=== PATIENT | male | born 1955 | race Caucasian/White ===

== ENCOUNTER 2016-10-09 11:22 | Inpatient (IN) | payer MEDICARE ==
[~2016-10-09] VITALS: Ht 168.9 cm; Wt 88.5 kg
[~2016-10-09 11:22] MED LIST: ACETAMINOPHEN500 M1 PO; AMBIEN10 MG PO; ANBESOL9 GM TOPICAL; CARDIZEM LA120 MG; CARDIZEM LA120 MG PO; CELEXA10 MG PO; COUMADIN3 MG; COUMADIN3 MG PO; COUMADIN6 MG; LISINOPRIL10 MG PO; NORCO 5/325 TAB1 TA1 PO; NORVASC10 MG PO; PHENERGAN25 M1 PO; PLAVIX75 MG PO; RENAGEL800 MG PO; RENVELA800 MG PO; SENSIPAR30 MG PO; VANCOMYCIN 500500 MG
[2016-10-09 12:38] LABS: BASOPHILS 0.1 % (0.0-2.0); EOSINOPHILS 0 % (0-7); HEMATOCRIT 32.1 % (42.0-54.0); HEMOGLOBIN 11.2 g/dL (13.5-17.5); IMMATURE GRANULOCYTES 1.8 % (0-5); LYMPHOCYTES 1.1 % (15-50); MCH 31.9 pg (26.0-34.0); MCHC 34.9 g/dL (31.0-37.0); MCV 91.5 fL (80.0-100.0); MEAN PLATELET VOLUME 9.5 fL (7.4-10.4); MONOCYTES 2.1 % (2-11); NEUTROPHILS 94.9 % (40-80); RBC 3.51 10x6/uL (4.20-6.10); RDW 14.4 % (11.5-14.5); WBC 18.3 10x3/uL (4.8-10.8)
[2016-10-09 12:44] LABS: PLATELET COUNT 131 10x3/uL (130-400)
[2016-10-09 13:10] LABS: ALBUMIN 2.2 g/dL (3.4-5.0); ALKALINE PHOSPHATASE 244 U/L (46-116); ALT (SGPT) 40 U/L (10-68); BILIRUBIN - TOTAL 1.45 mg/dL (0.2-1.3); CALC OSMOLALITY 285 mosm/kg (275-300); CALCIUM 9.7 mg/dL (8.5-10.1); CARBON DIOXIDE 24.9 mmol/L (21.0-32.0); CHLORIDE - SERUM 89 mmol/L (98-107); CREATININE - SERUM 9.9 mg/dL (0.6-1.3); POTASSIUM - SERUM 4.4 mmol/L (3.5-5.1); PROTEIN - SERUM 5.8 g/dL (6.4-8.2); SODIUM 127 mmol/L (136-145); UREA NITROGEN 91 mg/dL (7-18); eGFR NON AFRICAN AMERICAN 6 mL/min (90-120)
[2016-10-09 13:15] LABS: GLUCOSE 154 mg/dL (74-106)
[2016-10-09 13:21] LABS: CHOLESTEROL, TOTAL 195 mg/dL (0-200); CKMB 1.2 U/L (0.0-3.6); CREATINE KINASE 44 UL (21-232); HDL CHOLESTEROL 15 mg/dL (32-96); LDL CHOLESTEROL 108 mg/dL (0-100); LDL-HDL RATIO 7.2 ratio (1.5-3.5); TRIGLYCERIDE 360 mg/dL (30-200)
[2016-10-09 13:23] LABS: TROPONIN-I < 0.017 ng/mL (0.000-0.060)
[2016-10-09 13:54] LABS: INR 2.85 (0.85-1.17); PROTIME 30.2 SECONDS (11.6-15.0)
--- NOTE | 2016-10-09 16:07 | NUR ---
RECEIVED REPORT FROM RAFAL IN ED ON PATIENT. PATIENT TO BE BROUGHT OVER BY TECH.
--- NOTE | 2016-10-09 16:29 | NUR ---
1415 PATIENT ARRIVED TO UNIT. ADMITTED TO ROOM 2137. ARRIVED TO UNIT VIA GERNEY. PATIENT ALERT/ORIENTED. 20 GAUGE TO AC IS SALINE LOCKED. RESERVE LEFT ARM FOR AV FISTULA. PATIENT REQUIRES MAX ASSIST WITH TURNING AND TRANSFERRING. CALL LIGHT PLACED WITHIN REACH. ASSESSMENT COMPLETE AT THIS TIME. NO ACUTE DISTRESS.
[2016-10-09] MEDS ORDERED: NORVASC10 MG PO (16:36)
[2016-10-09] MEDS ORDERED: ACETAMINOPHEN500 M1 PO (16:38)
[2016-10-09] MEDS ORDERED: SENSIPAR90 MG PO (16:39)
[2016-10-09] MEDS ORDERED: HYDROCODON-ACE1 EAC7 PO (16:39)
[2016-10-09] MEDS ORDERED: ZOFRAN4 MG PO (16:45)
[2016-10-09 17:29] VITALS: BP 108/51; BMI 31.1
[2016-10-09 19:00] VITALS: BP 101/76
[2016-10-10] VITALS (8 sets, daily range): BP systolic 82–114; BP diastolic 42–72; Ht 168.9 cm; Wt 88.5 kg
--- NOTE | 2016-10-10 01:04 | NUR ---
NURSE ROUNDS 19:30 - PT LYING IN BED, AWAKE, ALERT, CONFUSED AND DISORIENTED X 3. PT DID NOT ANSWER QUESTIONS APPROPRIATELY. WHEN I ASKED PT IF HE NEEDED ANYTHING, HE RESPONDED THAT HE HAD ONE POTATO TODAY AND DID NOT NEED ANY MORE, THEN STATED THAT HE HAD BEEN TO [facility] 3 TIMES THIS WEEK AND REFUSING TO GO BACK. CONTINUE TO MONITOR CLOSELY. BED LOW, CALL LIGHT IN REACH. I DID EXPLAIN AND DEMONSTRATE TO PT HOW TO USE HIS CALL LIGHT, IN WHICH HE STATED HE UNDERSTOOD. SIDE RAILS X 2, HOB 10 DEGREES.
--- NOTE | 2016-10-10 05:28 | NUR ---
PT REMAINS CONFUSED, DISORIENTED, SPEECH GARBLED AT TIMES, STATES HE DOES NOT WANT TO GO TO [place], AND HAS INITIALLY REFUSED TO HAVE HIS V/S TAKEN @ 0400. PT DID EVENTUALLY AGREE. PT HAS CONSISTENTLY REMOVED HIS TELEMETRY, SO I DID REMOVE IT AND RETURNED BACK TO SUSHILA, CEMENT TESTER ASSISTANT. CONTINUE TO MONITOR CLOSELY. BED LOW, CALL LIGHT IN REACH, SIDE RAILS X 2, HOB 10 DEGREES, BED ALARM ON.
[2016-10-10 07:04] LABS: ANION GAP 22.5 mmol/L (8-16); BILIRUBIN - DIRECT 1.17 mg/dL (0.00-0.30); BILIRUBIN - INDIRECT 0.63 mg/dL (0.00-1.00); BILIRUBIN - TOTAL 1.8 mg/dL (0.2-1.3); CALCIUM 10.3 mg/dL (8.5-10.1); CARBON DIOXIDE 22.3 mmol/L (21.0-32.0); CREATININE - SERUM 10.2 mg/dL (0.6-1.3); PHOSPHOROUS 3.8 mg/dL (2.5-4.9); POTASSIUM - SERUM 4.8 mmol/L (3.5-5.1); PROTEIN - SERUM 6.1 g/dL (6.4-8.2)
[2016-10-10 07:11] LABS: BASOPHILS 0.1 % (0.0-2.0); EOSINOPHILS 0 % (0-7); HEMATOCRIT 30.9 % (42.0-54.0); IMMATURE GRANULOCYTES 2.3 % (0-5); LYMPHOCYTES 1.7 % (15-50); MCH 32.1 pg (26.0-34.0); MCHC 35.6 g/dL (31.0-37.0); MCV 90.1 fL (80.0-100.0); MEAN PLATELET VOLUME 9.7 fL (7.4-10.4); MONOCYTES 2.7 % (2-11); NEUTROPHILS 93.2 % (40-80); PLATELET COUNT 144 10x3/uL (130-400); RBC 3.43 10x6/uL (4.20-6.10); RDW 14.6 % (11.5-14.5)
--- NOTE | 2016-10-10 11:57 | NUR ---
PT RECIEVING DIALYSIS. PT IS VERY DIAPHORETIC AND COOL TO THE TOUCH. PT STATES "IM JUST TIRED AND DONT FEEL WELL" PT CANT PINPOINT EXACTLY WHATS WRONG THOUGH. PT IS CONFUSED AND RAMBLES RANDOM THOUGHTS THAT DO NOT MAKE SENSE HOWEVER THIS WAS HOW PT HAS BEEN SINCE ADMISSION. PTS L.PUPIL IS ABOUT 5MM AND R.EYE ABOUT 3MM. PTS HX IS HARD TO OBTAIN DUE TO LOC BUT HE STATES HE HAS HAD CATARACTS. VSS, FSBS 138. NO OBVIOUS REASONING FOR PT BECOMING DIAPHORETIC. PLACED COLD COMPRESS ON PTS FOREHEAD. REPLACED TELEMETRY AND PT IS RUNNING 80S CONTROLLED A.FIB. WILL NOTIFY IF SYMPTOMS CONTINUE. DIALYSIS NURSE AT BEDSIDE. WILL CTM.
--- NOTE | 2016-10-10 12:57 | NUR ---
CATH CALLED TO PRE-OP PT. PRE-OP COMPLETED. PT WAITING PATIENTLY AND DENIES ANY FURTHER NEEDS.
--- NOTE | 2016-10-10 12:58 | NUR ---
PT STATES HE IS FEELING BETTER. CHECKED HX AND PT HAS HAD L.EYE SX SO PUPIL DIFFERENCE IS HIS BASELINE. PT STILL DIAPHORETIC BUT FEELING MUCH BETTER. PT STILL RECIEVING DIALYSIS. NO FURTHER NEEDS AT THIS TIME. WILL CTM.
--- NOTE | 2016-10-10 13:40 | NUR ---
TX COMPLETE. PT B/P WAS HYPOTENSIVE. DECREASED UF GOAL 3XS. PT EXTREMELY CONFUSED. THOUGHT HE WAS IN [place]. SPEECH GARBELED. 1200ML OFF.
--- NOTE | 2016-10-10 14:00 | NUR ---
PT RESTING QUIETLY IN BED WITH EYES CLOSED. RR NONLABORED WITH NC @2L IN PLACE. PT STILL VERY LETHARGIC MUMBLES RANDOM INCOMPLETE THOUGHTS DURING CONVERATION. PTS FRIEND CALLED STATING HE IS NEVER CONFUSED AND THIS IS VERY CONCERNING FOR HIM, REQUESTED TO HAVE CARDIOLOGY CONSULTED. NO ORDER PER DOCTOR. NOTIFIED OF PTS RANDOM AMS AND LETHARGY ALL DAY AND ASKED ABOUT CONSULT BUT STATED IT WASNT NEEDED AT THIS POINT AND AMS MOST LIKELY DUE TO ACUTE INFECTION. WILL CTM CLOSELY.
--- NOTE | 2016-10-10 16:59 | NUR ---
[facility] - Patient's in-center clinic is [facility] on [address]. Medical records forwarded to the home unit for their records. Will cont to monitor. BMM PRL
--- NOTE | 2016-10-10 17:56 | NUR ---
PT HASNT EATEN ALL DAY. GOT PT TO DRINK 100CC OF WATER. PT STILL VERY LETHARGIC AND CONFUSED, MUMBLING RANDOM STATEMENTS. WHEN ASKED QUESTIONS PT ANSWERS INAPPROPRIATELY OR NOT AT ALL AND FALLS BACK ASLEEP. BP DOWN TO 82/42 WILL NOTIFY ON-CALL RENAL.
--- NOTE | 2016-10-10 18:03 | NUR ---
IN/OUT CATH PERFORMED PER . NO URINE OUTPUT AVAILABLE FOR COLLECTION. LAB CALLED TO CONFIRM A GRAM POSITIVE COCCI BLOOD CX. WILL CPOC AND AWAIT FINAL RESULT.
--- NOTE | 2016-10-10 18:17 | NUR ---
BP UP TO 105/54. WILL CPOC.
--- NOTE | 2016-10-10 18:40 | NUR ---
INITIATED PTS IVPB ROCEPHIN TO BE INFUSED OVER 30MINS. THIS IS LATE R/T PTS IVPB VANC INFUSING. PT RESTING QUIETLY WITH EYES CLOSED. NO FURTHER NEEDS NOTED AT THIS TIME. WILL CPOC.
--- NOTE | 2016-10-10 20:03 | NUR ---
PTS FRIEND, DAVID JOHNSTON, CALLED TO CHECK ON PTS STATUS. MR. JOHNSTON STATED THAT PT IS GENERALLY VERY AWARE, ORIENTED, AND HAS SHOWN NO MENTAL DEFICITS UNTIL NOW. MR. JOHNSTON STATES THAT PT WAS FOUND AT HIS HOME, IN THE FLOOR, UNRESPONSIVE, UNABLE TO AMBULATE, EXTREMELY CONFUSED, AND GENERALLY APPEARING ILL. MR. JOHNSTON IS INSISTING THAT PT RECEIVE A CARDIAC CONSULT WITH DR. FOX, THAT IS PTS PARK SUPERINTENDENT, AND IS CONCERNED THAT THIS INFECTION COULD BE AFFECTING PTS HEART. WILL ADDRESS WITH RENAL. PT IS LYING IN BED, EYES CLOSED, HARD TO ROUSE, CONFUSED, LETHARGIC, PALE, DIAPHORETIC, AND UNABLE TO UNDERSTAND ANY SIMPLE COMMANDS. WILL CONTINUE TO MONITOR CLOSELY AND CALL MD WITH ANY CHANGES.
--- NOTE | 2016-10-10 20:25 | NUR ---
PT DEMONSTRATES DYSPHAGIA WHEN SWALLOWING HIS MEDICATIONS, EVEN WITH SMALL SIPS OF WATER ALONE. PT IS EASILY ROUSABLE AT THIS TIME, DENIES ANY NEEDS. CONTINUE TO MONITOR CLOSELY. BED LOW, CALL LIGHT IN REACH, SIDE RAILS X 2, HOB 35 DEGREES.
[2016-10-11] VITALS (13 sets, daily range): BP systolic 87–116; BP diastolic 47–84
--- NOTE | 2016-10-11 05:07 | NUR ---
PT EASILY ROUSABLE TO VERBAL STIMULI, STILL MILDLY DIAPHORETIC, COOL AND CLAMMY TO TOUCH. CONTINUE TO MONITOR CLOSELY. BED LOW, CALL LIGHT IN REACH, SIDE RAILS X 2, HOB 30 DEGREES, BED ALARM ON.
[2016-10-11 05:50] LABS: BASOPHILS 0.1 % (0.0-2.0); EOSINOPHILS 0 % (0-7); HEMATOCRIT 30.2 % (42.0-54.0); HEMOGLOBIN 10.7 g/dL (13.5-17.5); IMMATURE GRANULOCYTES 1.3 % (0-5); LYMPHOCYTES 2.9 % (15-50); MCHC 35.4 g/dL (31.0-37.0); MCV 90.4 fL (80.0-100.0); MONOCYTES 5.4 % (2-11); NEUTROPHILS 90.3 % (40-80); PLATELET COUNT 132 10x3/uL (130-400); RBC 3.34 10x6/uL (4.20-6.10); RDW 14.9 % (11.5-14.5); WBC 16.7 10x3/uL (4.8-10.8)
[2016-10-11 06:06] LABS: ANION GAP 19.7 mmol/L (8-16); CALCIUM 10.3 mg/dL (8.5-10.1); CARBON DIOXIDE 22.1 mmol/L (21.0-32.0); CREATININE - SERUM 9.1 mg/dL (0.6-1.3); PHOSPHOROUS 4.8 mg/dL (2.5-4.9); POTASSIUM - SERUM 4.8 mmol/L (3.5-5.1)
--- NOTE | 2016-10-11 08:54 | NUR ---
PT HAVING A LOT OF DIFFICULTY SWALLOWING MEDS. PT CHOKED WITH BOTH PILLS. PT STILL VERY LETHARGIC BUT WAS ORIENTED ENOUGH TO KNOW HE WAS IN THE HOSPITAL. NOT ORIENTED TO SITUATION OR TIME THOUGH. SKIN STILL DIAPHORETIC AND CLAMMY. PT HASNT EATEN OR HAD ENERGY TO EAT OR DRINK ALL DAY YESTERDAY AND REFUSED BREAKFAST TODAY. TELEMETRY IN PLACE RECORDING CONTROLLED A.FIB IN THE 90S. PT RESTING AND DENIES ANY NEEDS AT THIS TIME. CL IN REACH. WILL CTM.
--- NOTE | 2016-10-11 10:02 | NUR ---
LAB ASST NOTIFIED ME OF PT FOAMING AT MOUTH. UPON ASSESSMENT PT WAS DROOLING FOAM. PT PREVIOUSLY HAD VERY HARD TIME SWALLOWING HIS MORNING MEDS AND ENDED UP NEEDING TO SPIT THEM OUT. RR NONLABORED WITH NC @2L. O2 SAT 99%. BP 89/50 VIA R.ARM, HR 96 CONTROLLED A.FIB. CONSULTED SPEECH FOR SWALLOW EVAL, WILL MAKE PT NPO FOR ASPIRATION PRECAUTION AND CTM CLOSELY.
--- NOTE | 2016-10-11 12:03 | NUR ---
PT RESTING QUIETLY IN BED WITH EYES CLOSED. MIRIAM FROM INFECTION CONTROL CALLED STATING HE NEEDS TO BE ON ISOLATION SO PRECAUTIONS WERE DONE AND PT IS NOW ON CONTACT ISOLATION FOR STAPH IN THE BLOOD. PT STILL VERY LETHARGIC AND REFUSED TO EAT OR DRINK. BP HYPOTENSIVE BUT OTHER VSS. NO CURRENT NEEDS NOTED AT THIS TIME. CL IN REACH, BED IN LOWEST, SIDE RAILS X2. WILL CTM.
--- NOTE | 2016-10-11 16:49 | NUR ---
PATIENT RECEIVED FROM MED2 VIA BED. PATIENT VERY LETHARGIC. SCABS NOTED FROM HEAD TO TOE. PATIENT ONLY MOANS IF TOUCHED. MOUTH BREATHER. LUNGS CTA, BS + X4, GENERALIZED EDEMA NOTED TO BILATERAL UPPER EXTREMETIES. RADIAL PULSES WEAK BILATERALLY, PEDAL PULSES NORMAL. DRESSING IN PLACE TO LEFT UPPER ARM FROM WHERE DIALYSIS WAS DONE YESTERDAY AND PER REPORT 1200 PULLED OFF. PATIENT IS ANURIC. RESERVE LEFT ARM. TELEMETRY IS SHOWING CONTROLLED A.FIB AT 86-92. NO VISUAL CUES OF DISTRESS NOTED. WILL CONTINUE TO MONITOR.
--- NOTE | 2016-10-11 18:16 | NUR ---
UNSUCCESSFULL AT STARTING SECOND IV. WILL CHECK WITH PHARMACY TO SEE IF ANTIBIOTICS CAN RUN WITH LEVOPHED THROUGH A [address].
--- NOTE | 2016-10-11 18:21 | NUR ---
LEVOPHED COMPATIBLE WITH ROCEPHIN, BUT AMPICILLIN IS NOT STABLE WITH DEXTROSE BASE FLUIDS. WILL WAIT UNTIL THE AMPICILLIN IS DONE TO START THE LEVOPHED. CURRENTLY BP IS 101/71.
--- NOTE | 2016-10-11 18:31 | NUR ---
AMPICILLIN COMPLETED, NO S/S OF REACTION. WILL NOTIFY PHARMACY.
--- NOTE | 2016-10-11 18:39 | NUR ---
SPOKE WITH ROMMEL IN PHARMACY TO LET HER KNOW THE PATIENT DID FINE WITH TEST DOSE OF AMPICILLIN.
--- NOTE | 2016-10-11 18:59 | NUR ---
SPOKE WITH DR VASQUEZ WHO IS GOLD RECLAIMER FOR DR NASH. ORDER RECEIVED FOR CENTRAL LINE TO BE PLACED. DR SKINNER HERE, SPOKE WITH HIM. HE WANTED TO SPEAK WITH DR FERNANDEZ SECONDARY TO HIM PLACING THE HEROGRAPH. CALLED DR SCHERER OFFICE, CALLED HIS AFTER HOURS NUMBER AND HIS CELL PHONE, MESSAGE WAS LEFT. DR SKINNER STATED HE WAS NOT ABLE TO WAIT ALL EVENING.
--- NOTE | 2016-10-11 19:28 | NUR ---
SPOKE WITH DR FERNANDEZ. EXPLAINED WHY DR SKINNER WAS WANTING TO SPEAK WITH HIM. HE STATED HE WOULD GIVE DR SKINNER A CALL AND SPEAK WITH HIM.
--- NOTE | 2016-10-11 19:38 | NUR ---
DR FERNANDEZ CALLED BACK. STATED THAT DR SKINNER WOULD BE IN AROUND 0600 IN THE MORNING TO SEE ABOUT THE PATIENTS LINE. HE STATED THAT IF HIS LINE DID NOT HOLD UNTIL THEN TO TRY UPPER SHOULDER/CHEST OR ABDOMIN FOR ANOTHER POSSIBLE LINE PLACEMENT. IT WAS EXPLAINED THAT WE DID ATTEMPT THE UPPER SOULDER WITHOUT SUCCESS AND HE AGAIN REPEATED TO LOOK ON THE CHEST OR ABDOMIN.
--- NOTE | 2016-10-11 21:20 | NUR ---
2100 PO MEDS UNABLE TO ADM AT THIS TIME. PT UNABLE TO SWALLOW MEDICATION IN APPLE SAUCE. PT UNABLE TO FOLLOW COMMANDS APPROPRIATELY. WILL CONTINUE TO MONITOR. VSS
--- NOTE | 2016-10-11 23:28 | NUR ---
REASSESSMENT COMPELTE PER FLOW SHEET.VSS NO NEW CHANGES AT THIS TIME. REPOSITIONED ON L SIDE. WILL CONTINUE TO MONITOR.
[2016-10-12] VITALS (24 sets, daily range): BP systolic 81–137; BP diastolic 46–77
--- NOTE | 2016-10-12 01:21 | NUR ---
NO NEW FINDINGS AT THIS TIME. VSS. REPOSITIONED ON R SIDE ORAL CARE ADM. WILL CONTINUE TO MONITOR.
--- NOTE | 2016-10-12 03:16 | NUR ---
REASSESSMENT COMPELTEP ER FLOW SHEET. NO NEW FINDINGS AT THIS TIME. VSS. WILL CONTINUE TO MONITOR.
[2016-10-12 06:44] LABS: EOSINOPHILS 0.1 % (0-7); HEMATOCRIT 28.4 % (42.0-54.0); HEMOGLOBIN 10.1 g/dL (13.5-17.5); LYMPHOCYTES 3.2 % (15-50); MCH 31.8 pg (26.0-34.0); MCHC 35.6 g/dL (31.0-37.0); MCV 89.3 fL (80.0-100.0); MEAN PLATELET VOLUME 10.7 fL (7.4-10.4); MONOCYTES 3.6 % (2-11); NEUTROPHILS 80.1 % (40-80); PLATELET COUNT 132 10x3/uL (130-400); RBC 3.18 10x6/uL (4.20-6.10); RDW 15.2 % (11.5-14.5); WBC 18.2 10x3/uL (4.8-10.8)
[2016-10-12 07:26] LABS: CALCIUM 9.5 mg/dL (8.5-10.1); CREATININE - SERUM 10.4 mg/dL (0.6-1.3); PHOSPHOROUS 5.2 mg/dL (2.5-4.9)
[2016-10-12 07:27] LABS: ANION GAP 13.9 mmol/L (8-16); CARBON DIOXIDE 30.2 mmol/L (21.0-32.0); POTASSIUM - SERUM 6.1 mmol/L (3.5-5.1)
--- NOTE | 2016-10-12 07:50 | NUR ---
ATTEMPTING TO GET PHONE CONSENT FOR CENTRAL LINE PLACEMENT. CALL WAS PLACED TO DAVID JOHNSTON, LISTED PERSON TO NOTIFY AT [phone], MESSAGE LEFT. WILL WAIT FOR RETURN CALL.
--- NOTE | 2016-10-12 08:09 | NUR ---
PATIENT IS CONFUSED AND NOT ABLE TO ANSWER QUESTIONS. HE IS DISORIENTED AND DOES NOT KNOW WHERE HE IS. [facility] CM, CARY GUAMAN, HAS DOCUMENTED THAT PATIENT'S HOME DIALYSIS UNIT IS [facility] IN [place] ON , [address]. CM TO FOLLOW.
--- NOTE | 2016-10-12 08:49 | NUR ---
ASSISTED DR SKINNER IN PLACEMENT OF CENTRAL LINE TO RIGHT GROIN. PATIENT TOLERATED WELL. SITE IS READY FOR USE PER DR SKINNER.
--- NOTE | 2016-10-12 09:03 | NUR ---
WALKED OVER TO SURGERY TO SEE ABOUT HAVING DR SKINNER SIGN THE CONSENT FORM, HE WAS IN SURGERY ALREADY. PAGED HIM AND LEFT MESSAGE WITH HOT TAR ROOFER HELPER REQUESTING THAT HE BE REMINDED TO SIGN CONSENT FORM SINCE NO FAMILY OBTAINABLE AND PATIENT UNABLE TO SIGN. SHE STATED "OK".
--- NOTE | 2016-10-12 09:12 | NUR ---
NUTRITION MONITORING & EVAL CHART REVIEWED. NOW IN ICU. UNDERGOING HD AT THIS TIME. NPO. WILL MONITOR DIET ADVANCEMENT, PT PROGRESS. RD FOLLOWING
[2016-10-12 09:17] LABS: HEPATITIS C ANTIBODY <0.1 (0.0-0.9)
--- NOTE | 2016-10-12 10:20 | NUR ---
DIALYSIS STARTED AT BEDSIDE.
--- NOTE | 2016-10-12 11:05 | NUR ---
PATIENTS B/P IS FALLING. PER DIALYSIS, THEY MAY HAVE TO STOP PULLING FLUID AND JUST CLEAN HIS BLOOD. WILL CONTINUE TO MONITOR.
--- NOTE | 2016-10-12 13:24 | NUR ---
PATIENT CONTINUES WITH DIALYSIS. B/P 83/51, MAP IS STILL >60 @63. PATIENT IS RESTING COMFORTABLY WITHOUT ANY SIGNS OF DISTRESS. HAS NOT HAD ANY NOTED EPISODES OF DIAPHORESIS HE DID WITH LAST DIALYSIS SESSION. WILL CONTINUE TO MONITOR.
--- NOTE | 2016-10-12 13:53 | NUR ---
MR. JOHNSTON HAS RETURNED THIS NURSES PHONE CALL. IT WAS DISCUSSED WITH HIM THE NATURE OF THE CALL THIS MORNING. IT WAS EXPLAINED THAT AT THE TIME THE PHYSICIAN MADE THE DECISION TO PLACE THE LINE EVEN THOUGH WE DID NOT HAVE A RETURN CALL. HE STATED "THAT'S FINE, IF HE NEEDED IT, YOU DO IT". CHRIS LAFLEUR ALSO WITNESSED HIM GIVING PERMISSION. UPDATE WAS GIVEN ABOUT HIS CONDITION. HE SAID IF AT ANY TIME WE FELT THE PATIENT WOULD BENEFIT FROM HIM BEING HERE HOLDING HIS HAND, TO PLEASE CALL AND HE WOULD JUMP IN THE CAR AND BE HERE IN A FEW HOURS. HE HAS ALSO REQUESTED TO BE CALLED DAY OR NIGHT IF THE PATIENT WERE TO NEED ANYTHING OR TAKE A TURN FOR THE WORSE. PASSWORD SET TO [employer]. ALL QUESTIONS WERE ANSWERED. CALL ENDED.
--- NOTE | 2016-10-12 14:32 | NUR ---
DIALYSIS COMPLETED. BED CHANGED SECONDARY TO BLOOD ON SHEETS AND GOWN. DURING BED CHANGE, NOTED PATIENT HAD A BOWEL MOVEMENT, HE WAS CLEANED. IT WAS ALSO NOTED THAT THERE WAS BLEEDING FROM RIGHT CVL. THIS SITE WAS CLEANED AND NEW DRESSING APPLIED. ZINC OXIDE APPLIED TO BOTTOM, REPOSITIONED ON SIDE FOR COMFORT, HEELS BRIDGED.
--- NOTE | 2016-10-12 16:57 | NUR ---
WENT IN TO REPOSITION PATIENT. PATIENT HAS BLED THROUGH DRESSING TO RIGHT GROIN AGAIN. SITE CLEANED UP, PATIENT CLEANED UP. REDRESSED USING CENTRAL LINE DRESSING CHANGE TRAY, USING STERILE TECHNIQUE WITH SURGICAL FIBRILLAR APPLIED AROUND INSERTION SITE. SAND BAG WAS APPLIED AFTER DRESSING FINISHED AND PATIENT IN LEFT LATERAL POSITION. ORAL CARE WAS ALSO APPLIED AT THIS TIME.
--- NOTE | 2016-10-12 18:12 | NUR ---
PATIENT RESTING COMFORTABLY AT THIS TIME. SMALL AMOUNT OF BLEEDING STILL NOTED UNDER DRESSING. WILL LEAVE THE SANDBAG ON A LITTLE LONGER.
--- NOTE | 2016-10-12 19:40 | NUR ---
PT LETHARGIC AND UNABLE TO FOLLOW COMMANDS. PT REPOSITIONED FOR COMFORT. SANDBAG TO RT GROIN, BLEEDING NOTED FROM CVL SITE. MAP REMAINS GREATER THAN 60 ON CM. ORAL CARE ADM. ROOM VISIBLE FROM NURSES STATION. WILL CONTINUE TO MONITOR.
--- NOTE | 2016-10-12 19:50 | NUR ---
REC'D CALL FROM [facility], UPDATED ON LAB RESULTS. NEW ORDERS REC'D.
--- NOTE | 2016-10-12 21:30 | NUR ---
NO VISITORS AT THIS TIME. VSS, PT REPOSITIONED. NO ACUTE CHANGES NOTED AT THIS TIME. ROOM VISIBLE FROM NURSES STATION. CPOC.
--- NOTE | 2016-10-12 23:30 | NUR ---
REASSESSMENT COMPLETE, SEE FLOWSHEET FOR ALL FINDINGS. NO ACUTE CHANGES NOTED AT THIS TIME. PT REPOSITIONED WITH BONY PROMINENCES BRIDGED. ORAL CARE ADM. CPOC.
[2016-10-13] VITALS (10 sets, daily range): BP systolic 86–106; BP diastolic 42–76
--- NOTE | 2016-10-13 01:30 | NUR ---
PT REPOSITIONED WITH BONY PROMINENCES BRIDGED. VSS, NO S/S OF PAIN. REMAINS LETHARGIC. ORAL CARE ADM. PARTIAL LINEN CHANGE.
--- NOTE | 2016-10-13 03:33 | NUR ---
REASSESSMENT COMPLETE, SEE FLOWHSEET FOR ALL DETAILS. NO ACTUE CHANGES AT THIS TIME. VSS, PT REPOSITIONED. ORAL CARE ADM.
[2016-10-13 05:10] LABS: BASOPHILS 0.2 % (0.0-2.0); EOSINOPHILS 0 % (0-7); HEMOGLOBIN 8.8 g/dL (13.5-17.5); IMMATURE GRANULOCYTES 7.9 % (0-5); LYMPHOCYTES 3.8 % (15-50); MCH 31.9 pg (26.0-34.0); MCHC 35.2 g/dL (31.0-37.0); MCV 90.6 fL (80.0-100.0); MEAN PLATELET VOLUME 9.5 fL (7.4-10.4); MONOCYTES 2.9 % (2-11); NEUTROPHILS 85.2 % (40-80); PLATELET COUNT 119 10x3/uL (130-400); RBC 2.76 10x6/uL (4.20-6.10); RDW 15.4 % (11.5-14.5)
[2016-10-13 05:16] LABS: WBC 12.2 10x3/uL (4.8-10.8)
[2016-10-13 05:48] LABS: ANION GAP 16.4 mmol/L (8-16); CARBON DIOXIDE 27.7 mmol/L (21.0-32.0); PHOSPHOROUS 4.8 mg/dL (2.5-4.9); VANCOMYCIN - RANDOM 20.1 ug/mL (10.0-20.0)
[2016-10-13 05:55] LABS: CREATININE - SERUM 7.3 mg/dL (0.6-1.3); POTASSIUM - SERUM 5.1 mmol/L (3.5-5.1)
--- NOTE | 2016-10-13 07:00 | NUR ---
REPORT RECIEVED, INITIAL ASSESSMENT COMPLETE, PLEASE SEE FLOW SHEETS FOR DETAILS. ORAL CARE AND TURNING PROVIDED. BED LOW AND LOCKED, PT NOT TRYING TO GET OOB, VERY LETHARGIC WITH GARBLED INCOMPREHENSIBLE SPEACH. VSS AT THIS TIME, WILL CONTINUE TO MONITOR.
--- NOTE | 2016-10-13 07:35 | NUR ---
CHECKED GROIN ACCESS AREA, SOME BLEEDING PRESENT. APPLIED SAND BAG TO AREA, WILL CONTINUE TO MONITOR.
[2016-10-13 08:05] LABS: ERYTHROCYTE SEDIMENTATION RATE 125 mm/hr (0-20)
--- NOTE | 2016-10-13 09:28 | NUR ---
NUTRITION MONITORING & EVAL CHART REVIEWED. PT CURRENTLY NPO. MAY REQUIRE NG TUBE FEEDS NEPRO IF UNABLE TO IMPROVE PO INTAKE. RD FOLLOWING
--- NOTE | 2016-10-13 11:31 | NUR ---
PATIENT HAS . HE DOES NOT HAVE ANY FAMILY LOCALLY. HIS NEIGHBOR WAS CONTACTED BY THE NURSE AND HE WILL LET THE EXTENDED FAMILY KNOW PATIENT HAS . HE HAS PROVIDED THE NURSE WITH HOME. CM TO FOLLOW.
--- NOTE | 2016-10-13 14:13 | NUR ---
0938 ENTERED PT ROOM TO CHECK ON PT AND NOTICED HE WAS NOT BREATHING, PULSE PRESENT, CALLED VANDANA WALTERS AND CALLED FOR RT HELP. ONE RT IN ROOM, NOTICED PT WAS INDEED BREATHING BUT GASPING FOR BREATH WEAKLY. 0940 CODE TEAM IN ROOM AND NO PULSE PRESENT, NO RESPIRATIONS. ACLS PROTOCOL STARTED AT THIS TIME. DR AGUILAR IN ROOM. PLEASE SEE CODE BLUE SHEET FOR FULL DETAILS. 1000 DR ROD NOTIFIED OF SITUATION. 1006 CODE WAS STOPPED. PT PRONOUNCED BY DR AGUILAR. 1015 ABIGAIL CALLED. 1020 NO FAMILY LISTED ON CHART, ATTEMPTING TO LOCATE. 1045 CALLED "OTHER RELATIONSHIP" PERSON LISTED ON PT CHART TO NOTIFY. THEY SAID THEY WOULD NOTIFY FAMILY AND SAID THAT [facility] IN [place] IS THE HOME THE FAMILY WOULD USE. [facility] WAS THEN CALL AND NOTIFIED OF PT EXPIRATION. 1400 [facility] PERSONELLE RETRIEVED PT BODY AND BELONGINGS TO TAKE TO HOME.
--- NOTE | 2016-10-14 16:40 | EC ---
PATIENT:JOHN LAUGHLIN DATE OF SERVICE: 10/09/16 SEX: M MEDICAL RECORD: [id number] DATE OF : 55 LOCATION:[facility] AGE OF PATIENT: 61 ADMISSION DATE: 10/09/16 REFERRING PHYSICIAN: INTERPRETING PHYSICIAN: DERIC CARIAS MD ECHOCARDIOGRAM REPORT ECHO CHARGES 4 ECHO COMPLETE CLINICAL DIAGNOSIS: ENDOCARDITIS ECHOCARDIOGRAPHIC MEASUREMENTS (adult normal given) AC root (d.<3.7cm) 3.6 LV Septum d (<1.2 cm> 1.4 Valve Excursion 1.9 LV Septum (systole) 2.3 Left Atria (s.<4.0cm> 4.3 LVPW d(<1.2cm) 1.5 RV (d.<2.3cm) 2.1 LVPW (sytole) 2.0 LV diastole(<5.6CM) 6.1 MV E-F(>70mm/sec) LV systole 3.9 LVOT Diameter 2.1 MV exc.(>10mm) Est.ejection fraction (50-75%) Pericardial Effusion N DOPPLER: LVIT A 40.0 E 65.0 LA RVSP 41.0 LVOT 128 AOP1/2T Asc. Ao 149 RVOT 98.0 RA PA 97.0 AV Gradient Peak 8.9 AV Mean 5.2 AV Area 2.3 MV Gradient Peak 2.2 MV Mean 1.0 MV Area COMMENTS: Android Platform Developer: Stacia ALEJANDRAOE Desktop Engineer:Stacia Carias TAPE# PACS DATE OF SERVICE: 10/12/2016 Echocardiogram FINDINGS: 1. Left ventricular chamber size is mildly dilated. Left ventricular systolic function is moderately reduced, overall ejection fraction is 30%. 2. Left atrium is enlarged at 4.3 cm. Right atrium and right ventricular chamber sizes are within normal limits. 3. Valvular structures have normal structure and motion. No evidence of ECHOCARDIOGRAM REPORT [id number] JOHN LAUGHLIN vegetative endocarditis. 4. Doppler interrogation reveals no significant valvular insufficiency or stenosis and pulmonary systolic pressure is normal estimated at 41 mmHg. 5. No evidence of pericardial effusion or left ventricular thrombus. TRANSINT:[id number] Voice Confirmation ID: [id number] DOCUMENT ID: [id number] DERIC CARIAS MD at 1640 CC: [id number] DICTATION DATE: 10/12/16 1232 SECOND WORKER: 10/12/16 1253 DIS IN 10/13/16 [facility] [address] [id number]
--- NOTE | 2016-11-23 10:17 | OP ---
PATIENT NAME: JOHN LAUGHLIN MEDICAL RECORD: [id number] :55 LOCATION:.[facility] D.2309 ADMISSION DATE:10/09/16 SURGEON: AL SKINNER MD DATE OF OPERATION: 10/12/2016 PREOPERATIVE DIAGNOSES: 1. Hypotension, requiring pressors. 2. End-stage renal disease in a patient who missed dialysis. POSTOPERATIVE DIAGNOSES: 1. Hypotension, requiring pressors. 2. End-stage renal disease in a patient who missed dialysis. PROCEDURE: Insertion of right groin triple lumen central venous catheter. SURGEON: Al Skinner MD CASINO INVESTIGATOR: None. BLOOD LOSS: Minimal. ANESTHESIA: Local. COMPLICATIONS: None. This is a patient of Dr. Johns. I have personally reviewed the CTA images. It reveals diminutive central veins on the right. It is unlikely that we would be able to place a central venous line and one in the central veins, right. In the left upper extremity. The patient has a HeRO graft. For this reason, Dr. Johns and I both discussed that probably a groin line venous patient's best interest. OPERATIVE COURSE: The patient was seen in his room. The right groin was sterilely prepped and draped. Local anesthetic was used to infiltrate the skin and subcutaneous tissues at the base of the right groin. The right common femoral vein was percutaneously identified easily. A guidewire was threaded with difficulty. A small skin karma was accomplished. A vessel dilator was used to dilate a subcutaneous tract. A 16-cm triple lumen central venous catheter was inserted to the hub. It was sutured in place times 3. All lumens flushed easily and aspirated dark, nonpulsatile blood. No x-ray is necessary. The central venous line can be used immediately. TRANSINT:[id number] Voice Confirmation ID: [id number] DOCUMENT ID: [id number] AL SKINNER MD at 1017 CC: JOHN NASH MD [id number] DICTATION DATE: 10/12/16 1043 STITCHER TAPE CONTROLLED MACHINE: 10/12/16 1103 DIS IN 10/13/16 [place] [id number]
== END 2016-10-13 14:23 | DRG 871 ==
LOC: D.ER 11:22 → D.ICU 13:46 → D.M2 13:46 → D.ICU 10-11 16:47
PROVIDERS: Emergency Medicine; Internal Medicine Nephrology; ADMIT Internal Medicine Nephrology
PROC: 02HV33Z Insertion of Infusion Device into Superior Vena Cava, Percutaneous Approach (ICD-10-PCS; principal; 2016-10-12)
PROC: 5A12012 Performance of Cardiac Output, Single, Manual (ICD-10-PCS; 2016-10-13)
PROC: 0BH17EZ Insertion of Endotracheal Airway into Trachea, Via Natural or Artificial Opening (ICD-10-PCS; 2016-10-13)
DX: A41.01 Sepsis due to Methicillin susceptible Staphylococcus aureus (principal); N18.6 End stage renal disease; R65.21 Severe sepsis with septic shock; G92 Toxic encephalopathy; I12.0 Hypertensive chronic kidney disease with stage 5 chronic kidney disease or end stage renal disease; I25.10 Atherosclerotic heart disease of native coronary artery without angina pectoris; D63.1 Anemia in chronic kidney disease